=== PATIENT | male | born 1975 | race Caucasian/White ===

== ENCOUNTER 2020-03-02 10:19 | Day surgery (SDC) | payer OTHER ==
[2020-02-27 12:35] VITALS: BMI 33.3
--- NOTE | 2020-03-02 07:16 | HP ---
History & Physical Update - Physical Physical: No Change - Assessment Assessment: No Change - Plan Plan: No Change
--- OUTSIDE RECORDS SUMMARY | 2020-03-02 10:24 | XMS ---
:1975 Author Organization [facility] Support Name Relationship Address Phone [address] [place] [address] [address]ISEL [address]OM [address] [place] [address] Re-disclosure Warning The records that you are about to access may contain information from federally- assisted alcohol or drug abuse programs. If such information is present, then the following federally mandated warning applies: This information has been disclosed to you from records protected by federal confidentiality rules (42 CFR part 2). The federal rules prohibit you from making any further disclosure of this information unless further disclosure is expressly permitted by the written consent of the person to whom it pertains or as otherwise permitted by 42 CFR part 2. A general authorization for the release of medical or other information is NOT sufficient for this purpose. The Federal rules restrict any use of the information to criminally investigate or prosecute any alcohol or drug abuse patient.The records that you are about to access may contain highly sensitive health information, the redisclosure of which is protected by Article 27-F of the [facility] Public Health law. If you continue you may haveaccess to information: Regarding HIV / AIDS; Provided by facilities licensed or operated by the [facility] Office of Mental Health; or Provided by the [facility] Office for People With Developmental Disabilities. If such information is present, then the following [facility] mandated warning applies: This information has been disclosed to you from confidential records which are protected by state law. State law prohibits you from making any further disclosure of this information without the specific written consent of the person to whom it pertains, or as otherwise permitted by law. Any unauthorized further disclosure in violation of state law may result in a fine or care home sentence or both. A general authorization for the release of medical or other information is NOT sufficient authorization for further disclosure. Insurance Providers Payer name Policy type Policy ID Covered Covered democrat's Policy P alexia / Coverage democrat ID relationship to [facility] ormation type [place] HIP MEDICAID [id number] SP [id number] Results ID Date Data Source [id number] 02/27/2020 10:05:00 AM EDT [facility] Name Value Range Interpretation Description Data Sup porting Code Source(s) Document(s ) SARS [facility] coronavirus 2 RNA This lab was ordered by DANIEL CALIX and reported by [facility]. ID Date Data Source [id number] 02/21/2020 08:43:00 AM EDT [facility] Received: 02/21/2020 at 03:16:00 QTE : [facility], [place], [address], Chet Jacobo MD Received: 02/21/2020 at 03:16:00 QTE : [facility], [place], [address], Chet Jacobo MD Received: 02/21/2020 at 03:16:00 QTE : [facility], [address] [place], [address], Chet Jacobo MD Received: 02/21/2020 at 03:16:00 QTE : [facility], [address] [place], [address]Chet MD Received: 02/21/2020 at 03:16:00 QTE : [facility], [address] [place], [address], Chet Jacobo MD Received: 02/21/2020 at 03:16:00 QTE : [facility], [place], [address], Chet Jacobo MD Name Value Range Interpretation Description Data Source(s ) Supporting Code Document(s ) SPECIMEN [facility] COMPROMISED Whole blood, unspun or partially spun ge l barrier tubewas received more than 6 hours since collection. Afalse elevation of K, Phos and LD as well as a falsedecrease in glucose may occur due to prolonged conta ctwith red cells. ID Date Data Source [id number] 02/21/2020 08:43:00 AM EDT [facility] Received: 02/21/2020 at 03:16:00 QTE : [facility], [address], [place], [address], Chet Jacobo MD Received: 02/21/2020 at 03:16:00 QTE : [facility], [address], [place], [address], Ceht Jacobo MD Received: 02/21/2020 at 03:16:00 QTE : [facility], [address], [place], [address], Chet Jacobo MD Received: 02/21/2020 at 03:16:00 QTE : [facility], [address], [place], [address], Chet Jacobo MD Received: 02/21/2020 at 03:16:00 QTE : [facility], [address], [place], [address], Chet Jacobo MD Received: 02/21/2020 at 03:16:00 QTE : [facility], [address], [place], [address], Chet Jacobo MD Name Value Range Interpretation Description Data Source(s ) Supporting Code Document(s ) Glucose 124 mg/dL 65-99 Above high normal [facility] [Mass/volum Diagnostics e] in Serum or Plasma Fasting reference intervalFor someone without known diabetes, a glucose valuebetween 100 and 125 mg/dL is consis tent withprediabetes and should be confirmed with afollow-up test. Urea nitrogen 12 mg/dL 7-25 Normal (applies [facility] [Mass/volume] in Serum to non-numeric Di agnostics or Plasma results) Creatinine 0.93 mg/dL 0.60-1.35 Normal (applies [facility] [Mass/volume] in Serum to non-numeric Di agnostics or Plasma results) Glomerular filtration 101 > OR = 60 Normal (applies Qu est rate/1.73 sq mL/min/1.73m2 to non-numeric Diagnost ics M.predicted [Volume results) Rate/Area] in Serum, Plasma or Blood by Creatinine-based formula (MDRD) Glomerular filtration 117 > OR = 60 Normal (applies Qu est rate/1.73 sq M mL/min/1.73m2 to non-numeric Diagno stics predicted among blacks results) [Volume Rate/Area] in Serum or Plasma by Creatinine-based formula (MDRD) Urea NOT APPLICABLE 6-22 [facility] nitrogen/Creatinine (calc) Diagnostic s [Mass Ratio] in Serum or Plasma Sodium [Moles/volume] 138 mmol/L 135-146 Normal (applies Q uest in Serum or Plasma to non-numeric Diagno stics results) Potassium 4.8 mmol/L 3.5-5.3 Normal (applies [facility] [Moles/volume] in to non-numeric Diagnos tics Serum or Plasma results) Chloride 102 mmol/L 98-110 Normal (applies [facility] [Moles/volume] in to non-numeric Diagnos tics Serum or Plasma results) Carbon dioxide, total 27 mmol/L 20-32 Normal (applies Qu est [Moles/volume] in to non-numeric Diagnos tics Serum or Plasma results) Calcium [Mass/volume] 8.9 mg/dL 8.6-10.3 Normal (applies Qu est in Serum or Plasma to non-numeric Diagno stics results) Protein [Mass/volume] 6.6 g/dL 6.1-8.1 Normal (applies Qu est in Serum or Plasma to non-numeric Diagno stics results) Albumin [Mass/volume] 4.1 g/dL 3.6-5.1 Normal (applies Qu est in Serum or Plasma to non-numeric Diagno stics results) Globulin [Mass/volume] 2.5 g/dL (calc) 1.9-3.7 Normal (applies [facility] in Serum by to non-numeric Diagnostics calculation results) Albumin/Globulin [Mass 1.6 (calc) 1.0-2.5 Normal (applies [facility] Ratio] in Serum or to non-numeric Diagno stics Plasma results) Bilirubin.total 0.4 mg/dL 0.2-1.2 Normal (applies [facility] [Mass/volume] in Serum to non-numeric Di agnostics or Plasma results) Alkaline phosphatase 81 U/L 36-130 Normal (applies Que st [Enzymatic to non-numeric Diagnostics activity/volume] in results) Serum or Plasma Aspartate 19 U/L 10-40 Normal (applies [facility] aminotransferase to non-numeric Diagnost ics [Enzymatic results) activity/volume] in Serum or Plasma Alanine 16 U/L 9-46 Normal (applies [facility] aminotransferase to non-numeric Diagnost ics [Enzymatic results) activity/volume] in Serum or Plasma ID Date Data Source [id number] 02/21/2020 08:43:00 AM EDT [facility] Received: 02/21/2020 at 03:16:00 QTE : [facility], [address], [place], [address], Chet Jacobo MD Received: 02/21/2020 at 03:16:00 QTE : [facility], [address], [place], [address], Chet Jacobo MD Received: 02/21/2020 at 03:16:00 QTE : [facility], [address], [place], [address], Chet Jacobo MD Received: 02/21/2020 at 03:16:00 QTE : [facility], [address], [place], [address], Chet Jacobo MD Received: 02/21/2020 at 03:16:00 QTE : [facility], [place], [address], Chet Jacobo MD Received: 02/21/2020 at 03:16:00 QTE : [facility], [address], [place], [address], Chet Jacobo MD Name Value Range Interpretation Description Data Source(s ) Supporting Code Document(s ) aPTT in 31 sec 22-34 Normal (applies [facility] Platelet poor to non-numeric Diagnostics plasma by results) Coagulation assay This test has not been validated for mon itoringunfractionated heparin therapy. For testing thatis validated for this type o f therapy, please referto the Heparin Anti-Xa assay (test code 01323).For additional i nformation, please refer tohttp://education.Chargemaster/ faq/BNE932(This link is being provided forinformational/educational purposes on ly.) ID Date Data Source [id number] 02/21/2020 08:43:00 AM EDT [facility] Received: 02/21/2020 at 03:16:00 QTE : [facility], [address], [place], [address], Chet Jacobo MD Received: 02/21/2020 at 03:16:00 QTE : [facility], [address], [place], [address], Chet Jacobo MD Received: 02/21/2020 at 03:16:00 QTE : [facility], [address], [place], [address], Chet Jacobo MD Received: 02/21/2020 at 03:16:00 QTE : [facility], [address], [place], [address], Chet Jacobo MD Received: 02/21/2020 at 03:16:00 QTE : [facility], [address], [place], [address], Chet Jacobo MD Received: 02/21/2020 at 03:16:00 QTE : [facility], [address], [place], [address], Chet Jacobo MD Name Value Range Interpretation Description Data Sup porting Code Source(s) Document(s ) Leukocytes 5.1 3.8-10. Normal (applies [facility] [#/volume] in Thousand 8 to non-numeric Diagnostics Blood by /uL results) Automated count Erythrocytes 5.30 4.20-5. Normal (applies [facility] [#/volume] in Million/ 80 to non-numeric Diagnostics Blood by uL results) Automated count Hemoglobin 15.2 13.2-17 Normal (applies [facility] [Mass/volume] in g/dL .1 to non-numeric Diagnost ics Blood results) Hematocrit 43.3 % 38.5-50 Normal (applies [facility] [Volume .0 to non-numeric Diagnostics Fraction] of results) Blood by Automated count Erythrocyte mean 81.7 fL 80.0-10 Normal (applies [facility] corpuscular 0.0 to non-numeric Diagnostics volume [Entitic results) volume] by Automated count Erythrocyte mean 28.7 pg 27.0-33 Normal (applies [facility] corpuscular .0 to non-numeric Diagnostics hemoglobin results) [Entitic mass] by Automated count Erythrocyte mean 35.1 32.0-36 Normal (applies [facility] corpuscular g/dL .0 to non-numeric Diagnostics hemoglobin results) concentration [Mass/volume] by Automated count Erythrocyte 14.0 % 11.0-15 Normal (applies [facility] distribution .0 to non-numeric Diagnostics width [Ratio] by results) Automated count Platelets 208 140-400 Normal (applies [facility] [#/volume] in Thousand to non-numeric Diagnostics Blood by /uL results) Automated count Platelet mean 12.0 fL 7.5-12. Normal (applies [facility] volume [Entitic 5 to non-numeric Diagnosti cs volume] in Blood results) by Roger Neutrophils 2642 1500-78 Normal (applies [facility] [#/volume] in cells/uL 00 to non-numeric Diagnostics Blood by results) Automated count Lymphocytes 1933 850-390 Normal (applies [facility] [#/volume] in cells/uL 0 to non-numeric Diagnostics Blood by results) Automated count Monocytes 383 200-950 Normal (applies [facility] [#/volume] in cells/uL to non-numeric Diagnostics Blood by results) Automated count Eosinophils 102 15-500 Normal (applies [facility] [#/volume] in cells/uL to non-numeric Diagnostics Blood by results) Automated count Basophils 41 0-200 Normal (applies [facility] [#/volume] in cells/uL to non-numeric Diagnostics Blood by results) Automated count Neutrophils/100 51.8 % 38-80 Normal (applies [facility] leukocytes in to non-numeric Diagnostics Blood by results) Automated count Lymphocytes/100 37.9 % 15-49 Normal (applies [facility] leukocytes in to non-numeric Diagnostics Blood by results) Automated count Monocytes/100 7.5 % 0-13 Normal (applies [facility] leukocytes in to non-numeric Diagnostics Blood by results) Automated count Eosinophils/100 2.0 % 0-8 Normal (applies [facility] leukocytes in to non-numeric Diagnostics Blood by results) Automated count Basophils/100 0.8 % 0-2 Normal (applies [facility] leukocytes in to non-numeric Diagnostics Blood by results) Automated count ID Date Data Source [id number] 02/21/2020 08:43:00 AM EDT [facility] Received: 02/21/2020 at 03:16:00 QTE : [facility], [address], [place], [address], Chet Jacobo MD Received: 02/21/2020 at 03:16:00 QTE : [facility], [address], [place], [address], Chet Jacobo MD Received: 02/21/2020 at 03:16:00 QTE : [facility], [address], [place], [address], Chet Jacobo MD Received: 02/21/2020 at 03:16:00 QTE : [facility], [address], [place], [address], Chet Jacobo MD Received: 02/21/2020 at 03:16:00 QTE : [facility], [address], [place], [address], Chet Jacobo MD Received: 02/21/2020 at 03:16:00 QTE : [facility], [address], [place], [address], Chet Jacobo MD Name Value Range Interpretation Description Data Source(s ) Supporting Code Document(s ) INR in Platelet 1.0 Normal (applies to [facility] poor plasma by non-numeric Diagnostics Coagulation results) assay Reference Range 0.9- 1.1Moderate-intensity Warfarin Therapy 2.0-3.0Higher-intensity Warfarin Therapy 3.0-4.0 Prothrombin time (PT) 10.4 sec 9.0-11.5 Normal (applies to [facility] non-numeric results) For more information on this test, go to:http://education.Perfusix /faq/UYB450 ID Date Data Source [id number] 02/21/2020 08:43:00 AM EDT [facility] Received: 02/21/2020 at 03:16:00 QTE : [facility], [address], [place], [address], Chet Jacobo MD Received: 02/21/2020 at 03:16:00 QTE : [facility], [place], [address], Chet Jacobo MD Received: 02/21/2020 at 03:16:00 QTE : [facility], [address], [place], [address], Chet Jacobo MD Received: 02/21/2020 at 03:16:00 QTE : [facility], [place], [address], Chet Jacobo MD Received: 02/21/2020 at 03:16:00 QTE : [facility], [place], [address], Chet Jacobo MD Received: 02/21/2020 at 03:16:00 QTE : [facility], [place], [address], Chet Jacobo MD Name Value Range Interpretation Description Data Source(s ) Supporting Code Document(s ) ABO group A [facility] [Type] in Diagnostics Blood Rh [Type] RH(D) [facility] in Blood NEGATIVE Diagnostics For additional information, please refer tohttp://education.Therabiol.Fyreball/ faq/XCX369(This link is being provided for informational/educational purposes only. ) ID Date Data Source [id number] 01/18/2020 05:15:00 PM EDT [facility] Name Value Range Interpretation Description Data Sup porting Code Source(s) Document(s ) SARS [facility] coronavirus 2 RNA [Presence] in Nasopharynx by BOO with non-probe detection This lab was ordered by [facility] and reported by [facility] Procedure
[2020-03-02] MEDS ORDERED: BUPIVACAINE HCL/PF 0.25% (2.5MG/ML) 10 ML VIAL ONE (11:18)
--- NOTE | 2020-03-02 11:25 | OPR ---
DATE OF SURGERY: 03/02/2020 PROCEDURE: Bilateral open carpal tunnel release. PREOPERATIVE DIAGNOSIS: Bilateral carpal tunnel syndrome. POSTOPERATIVE DIAGNOSIS: Bilateral carpal tunnel syndrome. SURGEON: Nicolas Cook DO INVESTIGATIVE REPORTER: Hemanth Freitas DO ANESTHESIA: General IMPLANTS: None SPECIMEN: None TOURNIQUET TIME: 24 minutes on the right, 9 minutes on the left EBL: 1 ml each side COMPLICATIONS: None INDICATIONS: The patient is a 44 year old male with moderate bilateral carpal tunnel syndrome with worsening symptoms, despite conservative treatment. He wished to proceed with the open operative release. We discussed the risks and benefits of the procedure. The risks included but were not limited to infection, wound healing problems, possibility of recurrence, intractable pain, scarring, and further surgery for seen and unforeseen complications and recurrence. Mr Al gave written consent to proceed. SURGEONS NARRATIVE: We brought the patient to the operating room and placed him in a supine position with the right and left arms abducted to 90 degrees. He underwent successful induction of general anesthesia, and the anesthesia service administered the intravenous antibiotics. We next prepped both arms with ChloraPrep and draped the arm sterilely. We applied a 18 inch tourniquet around the proximal arms. I placed a sharee in the proximal palm along the ring finger metacarpal axis at the base of each hand and took the sharee ulnarly at the transverse wrist crease. We started with the left side first. We exsanguinated the left arm, and we raised the tourniquet to 250 mm Hg. We made a 1.5 cm incision and used the bipolar cautery for hemostasis of the small vessels. We next identified the palmaris longus and cut along the ulnar side and then reflected the tendon radially. We identified the palmaris brevis and the transverse carpal ligament. We continued the exposure and then identified the transverse carpal ligament, which then we incised. It was thick and fibrotic and we incised it from the mid palm to the junction with the forearm, using a probe and groove to protect the median nerve at all times. We did additional release distally into the mid palm to divide any residual attached palmar fascia and into the distal aspect of the forearm. Care was taken not to injure the vascular arch in the mid palm. We evaluated the median nerve and noted that it was compressed by the transverse carpal ligament in the mid to distal part of the carpal tunnel with noted swelling proximally. I looked for the recurrent median nerve and found it to branch distally through the radial side of the transverse ligament. There was excellent decompression of the median nerve. With this done, we deflated the tourniquet and saw moderate reperfusion hyperemia in the previously compressed portion of the median nerve. We applied direct pressure and used bipolar cautery for hemostasis. We then irrigated the wound thoroughly. We closed the incision with interrupted 3-0 nylon sutures. I then injected 5 ml's of .25% Marcaine subcutaenously around the incision. We dressed the incision with Xeroform and applied sterile dressings and an IBRAHIMA bandage. We left the fingers and thumb free from the MP joints distally. We then turned our attention to the right side. We exsanguinated the right arm, and we raised the tourniquet to 250 mm Hg. We made a 1.5 cm incision and used the bipolar cautery for hemostasis of the small vessels. We next identified the palmaris longus and cut along the ulnar side and then reflected the tendon radially. We identified the palmaris brevis and the transverse carpal ligament. We continued the exposure and then identified the transverse carpal ligament, which then we incised. It was thick and fibrotic and we incised it from the mid palm to the junction with the forearm, using a probe and groove to protect the median nerve at all times. We did additional release distally into the mid palm to divide any residual attached palmar fascia and into the distal aspect of the forearm. Care was taken not to injure the vascular arch in the mid palm. We evaluated the median nerve and noted that it was compressed by the transverse carpal ligament in the mid to distal part of the carpal tunnel with noted swelling proximally. I looked for the recurrent median nerve and found it to branch distally through the radial side of the transverse ligament. There was excellent decompression of the median nerve. With this done, we deflated the tourniquet and saw moderate reperfusion hyperemia in the previously compressed portion of the median nerve. We applied direct pressure and used bipolar cautery for hemostasis. We then irrigated the wound thoroughly. We closed the incision with interrupted 3-0 nylon sutures. I then injected 5 ml's of .25% Marcaine subcutaenously around the incision. We dressed the incision with Xeroform and applied sterile dressings and an IBRAHIMA bandage. We left the fingers and thumb free from the MP joints distally. Hemanth Freitas DO acted as first-assist during the procedure as there was no qualified resident patient information coordinator available to do so. We transferred the patient to the recovery room in a stable and awake condition. I was present for the entire procedure and performed the operation. Hemanth Freitas was first-visitor use assistant during the case as there was not a qualified resident patient information coordinator available. The patient was given detailed post-operative instructions, and will follow up in my office in 7-10 days. Nicolas Cook DO
[2020-03-02] MEDS ORDERED: MIDAZOLAM HCL 2 MG/2 ML SINGLE DOSE VIAL ONE ×2 (11:47→13:20)
[2020-03-02] MEDS ORDERED: PROPOFOL 20 ML ONE ×2 (11:47→13:38)
[2020-03-02] MEDS ORDERED: ONDANSETRON 4 MG/2 ML VIAL ONE (13:20)
[2020-03-02] MEDS ORDERED: DEXAMETHASONE SOD PHOSPHATE 4 MG/1 ML VIAL ONE (13:20)
[2020-03-02] MEDS ORDERED: ceFAZolin SODIUM 1 GM VIAL IVPB ONE (13:50)
[2020-03-02] MEDS ORDERED: EPHEDRINE SULFATE/0.9% NACL/PF 50 MG/10 ML SYRINGE NR ONE (13:52)
[2020-03-02] MEDS ORDERED: BUPIVICAINE 0.25%/MORPH PF/KETOROLAC - 51ML DISP.SYRINGE IA ONE (14:18)
[2020-03-02] MEDS ORDERED: BUPIVACAINE HCL/PF 0.25% (2.5MG/ML) 10 ML VIAL IJ ONE (14:18)
[2020-03-02] MEDS ORDERED: ACETAMINOPHEN 325 MG TABLET (FP) PO PRN (15:04)
[2020-03-02] MEDS ORDERED: oxyCODONE HCL 5 MG TABLET PO PRN (15:04)
[2020-03-02] MEDS ORDERED: ONDANSETRON 4 MG/2 ML VIAL IVPUSH PRN (15:06)
[2020-03-02] MEDS ORDERED: PROMETHAZINE HCL 25 MG/1 ML VIAL IVPUSH PRN (15:06)
[2020-03-02] MEDS ORDERED: LACTATED RINGERS SOLUTION 1,000 ML IV SCH (15:15)
[2020-03-02 16:06] VITALS: PULSE 86
[2020-03-02] MEDS ORDERED: ACETAMINOPHEN 325 MG TABLET (FP) ONE (16:27)
[2020-03-02 16:43] VITALS: BP 121/79; TEMP 97.8
== END 2020-03-02 17:25 | disposition home or self-care (01) ==
LOC: FASU 10:19
PROVIDERS: ATTEND Orthopaedic Surgery Sports Medicine
PROC: 01N50ZZ Release Median Nerve, Open Approach (ICD-10-PCS; 2020-03-02)
PROC: 01N50ZZ Release Median Nerve, Open Approach (ICD-10-PCS; principal; 2020-03-02 11:30)
DX: G56.03 Carpal tunnel syndrome, bilateral upper limbs (principal)
CPT/HCPCS: 94760